=== PATIENT | female | born 1960 | race African-American/Black ===

== ENCOUNTER 2016-06-02 22:15 | Inpatient (IN) | payer MEDICAID, MEDICARE ==
[~2016-06-02] VITALS: Ht 172.7 cm; Wt 73.9 kg
[~2016-06-02 22:15] MED LIST: AMLO5TAB88 PO; ASPI325T2 PO; ATOR10TA PO; DICYCLOMINE PO; DOCU-138 PO; DULO60CA44 PO; FLONASE BOTHNSTRLS; GABA-531 PO; GABA800T97 PO; INSULIN PUMP; METH-612 PO; METO50TA5 PO; NORT50CA PO; OMEG100017 PO; PANT40TA4 PO; PROBIOTICS PO; TAPE75TA2 PO; TRAZADONE HCL PO; [UNRECOGNIZED DRUG - CODE] PO; [UNRECOGNIZED DRUG - CODE] TOP; [UNRECOGNIZED DRUG - CODE] TOP; [UNRECOGNIZED DRUG - CODE] TOP
[2016-06-02] MEDS ORDERED: ONDANSETRON HCL 4MG/2ML VIAL IV STA (22:49)
[2016-06-02] MEDS ORDERED: ASPIRIN 81MG TABLET PO STA (22:49)
[2016-06-02] MEDS ORDERED: MORPHINE SULFATE 4 MG/ML CPJ (NOT FOR IM USE) IV STA (22:49)
[2016-06-02] MEDS ORDERED: NITROGLYCERIN 0.4MG TABLET SL SL PRN (23:00)
[2016-06-02 23:16] LABS: PARTIAL THROMBOPLASTIN TIME 20.2 sec (24.0-34.0)
[2016-06-02 23:20] LABS: ALANINE AMINOTRANSFERASE 21 IU/L (13-61); ALBUMIN 3.2 g/dL (3.4-5.0); ANION GAP 11; CALCIUM 8.4 mg/dL (8.5-10.1); CARBON DIOXIDE 28 mEq/L (21-32); CHLORIDE 107 mEq/L (98-107); INDEX HEMOLYSI 2 (1-3); INDEX ICTERIC 1 (1-4); INDEX LIPEMIC 1 (1-3); LIPASE 36 IU/L (73-393); UREA NITROGEN BLOOD 18 mg/dL (7-21); eGFR > 60 mL/min (>60)
[2016-06-02 23:22] LABS: TROPONIN I < 0.02 ng/mL (0.00-0.04)
[2016-06-02 23:48] LABS: BASOPHILS % 1.1 % (0.0-2.0); EOSINOPHILS % 4.5 % (0.0-5.0); HEMATOCRIT. 30.8 % (36.0-48.0); HEMOGLOBIN. 10.3 g/dL (12.0-16.0); LYMPHOCYTES % 43.1 % (20.0-50.0); MEAN CORPUSCULAR HEMOGLOBIN 29.3 pg (28.0-32.0); MEAN CORPUSCULAR HGB CONC 33.4 g/dL (31.0-37.0); MEAN CORPUSCULAR VOLUME 87.8 fL (81.0-99.0); MEAN PLATELET VOLUME 8.5 fl (7.4-10.4); MONOCYTES % 9.3 % (2.0-8.0); PLATELET 215 x1000/uL (130-400); RED BLOOD CELL COUNT 3.51 mill/uL (4.2-5.4); RED CELL DISTRIBUTION WIDTH 15.7 % (11.6-14.6)
[2016-06-03 04:59] VITALS: BP 110/62
[2016-06-03] MEDS ORDERED: ONDANSETRON HCL 4MG/2ML VIAL IV PRN (05:30)
[2016-06-03] MEDS ORDERED: DOCUSATE SODIUM 100MG CAPSULE PO PRN (05:30)
[2016-06-03] MEDS ORDERED: ACETAMINOPHEN 325MG TABLET PO PRN (05:30)
[2016-06-03] MEDS ORDERED: HYDROCODONE/ACETAMINOPHEN 5/325MG TABLET PO PRN (05:30)
[2016-06-03] MEDS ORDERED: IBUP-1509 PO (06:00)
[2016-06-03] MEDS ORDERED: ROSTASIS EACHEYE (06:00)
[2016-06-03] MEDS ORDERED: CYAN10009 PO (06:00)
[2016-06-03] MEDS ORDERED: TAPE75TA2 PO (06:00)
[2016-06-03] MEDS ORDERED: LORA0.5T2 PO (06:00)
[2016-06-03] MEDS ORDERED: DICL100G5 TP (06:00)
[2016-06-03] MEDS ORDERED: MELO-58 PO (06:00)
[2016-06-03] MEDS ORDERED: RANI300T4 PO (06:00)
[2016-06-03 07:55] LABS: CREATINE KINASE 42 IU/L (26-192); INDEX HEMOLYSI 1 (1-3); TROPONIN I < 0.02 ng/mL (0.00-0.04)
[2016-06-03 08:00] VITALS: BP 133/83
[2016-06-03] MEDS: ASPIRIN 81MG EC TABLET PO SCH (08:35)
[2016-06-03] MEDS: METOPROLOL TARTRATE 25MG TABLET PO SCH ×2 (08:38→16:48)
[2016-06-03] MEDS: HYDROMORPHONE HCL/PF 2MG/ML CPJ IV PRN ×3 (08:39→23:20)
[2016-06-03 12:00] VITALS: BP 142/89
[2016-06-03] MEDS ORDERED: LORAZEPAM 0.5MG TABLET PO SCH (14:00)
[2016-06-03] MEDS ORDERED: FENTANYL 50 MCG TOP SCH (14:00)
[2016-06-03 16:00] VITALS: BP 151/90
[2016-06-03] MEDS: FAMOTIDINE 20MG TABLET PO SCH ×2 (16:13→16:48)
[2016-06-03] MEDS: METHOCARBAMOL 750MG TABLET PO SCH ×2 (16:14→20:29)
[2016-06-03] MEDS: FISH OIL/OMEGA-3 FATTY ACIDS 1000MG CAPSULE PO SCH (16:14)
[2016-06-03] MEDS: GABAPENTIN 300MG CAPSULE PO SCH (16:14)
[2016-06-03 16:30] LABS: CREATINE KINASE 48 IU/L (26-192); INDEX HEMOLYSI 1 (1-3); TROPONIN I < 0.02 ng/mL (0.00-0.04)
[2016-06-03] MEDS: NORTRIPTYLINE HCL 25MG CAPSULE PO SCH (16:48)
[2016-06-03] MEDS ORDERED: FENTANYL 75MCG/HR PATCH TOP SCH (18:00)
[2016-06-03 20:00] VITALS: BP 151/94
[2016-06-03] MEDS: CLONIDINE 0.1MG TABLET PO PRN (20:30)
[2016-06-03] MEDS ORDERED: ATORVASTATIN CALCIUM 10MG TABLET PO SCH (21:00)
[2016-06-03] MEDS ORDERED: PNEUMOCOCCAL 23-VAL P-SAC VAC 0.5 ML IM ONE (21:00)
[2016-06-04] VITALS: BP 157/96
[2016-06-04 04:00] VITALS: BP 95/62
[2016-06-04 06:21] LABS: BASOPHILS % 0.6 % (0.0-2.0); EOSINOPHILS % 3.6 % (0.0-5.0); HEMATOCRIT. 33.4 % (36.0-48.0); HEMOGLOBIN. 11.3 g/dL (12.0-16.0); LYMPHOCYTES % 28.3 % (20.0-50.0); MEAN CORPUSCULAR HEMOGLOBIN 29.6 pg (28.0-32.0); MEAN CORPUSCULAR VOLUME 87.1 fL (81.0-99.0); MEAN PLATELET VOLUME 8.5 fl (7.4-10.4); MONOCYTES % 9.2 % (2.0-8.0); NEUTROPHILS % 58.3 % (40.0-76.0); PLATELET 250 x1000/uL (130-400); RED BLOOD CELL COUNT 3.83 mill/uL (4.2-5.4); RED CELL DISTRIBUTION WIDTH 15.5 % (11.6-14.6); WHITE BLOOD COUNT 9.2 x1000/uL (4.5-11.0)
[2016-06-04] MEDS ORDERED: IBUPROFEN 600MG TABLET PO SCH (07:15)
[2016-06-04 07:35] LABS: ALANINE AMINOTRANSFERASE 21 IU/L (13-61); ALBUMIN 3.2 g/dL (3.4-5.0); ANION GAP 11; CALCIUM 8.9 mg/dL (8.5-10.1); CARBON DIOXIDE 30 mEq/L (21-32); CHLORIDE 103 mEq/L (98-107); HDL CHOLESTEROL 75 mg/dL (40-59); INDEX HEMOLYSI 1 (1-3); INDEX ICTERIC 1 (1-4); INDEX LIPEMIC 1 (1-3); LDL CHOLESTEROL 95 mg/dL (5-100); TRIGLYCERIDE 73 mg/dL (0-150); UREA NITROGEN BLOOD 11 mg/dL (7-21); eGFR > 60 mL/min (>60)
[2016-06-04 08:00] VITALS: BP 110/64
[2016-06-04] MEDS: ASPIRIN 81MG EC TABLET PO SCH (08:34)
[2016-06-04] MEDS: FISH OIL/OMEGA-3 FATTY ACIDS 1000MG CAPSULE PO SCH ×2 (08:35→15:56)
[2016-06-04] MEDS: METHOCARBAMOL 750MG TABLET PO SCH ×2 (08:36→15:55)
[2016-06-04] MEDS: NORTRIPTYLINE HCL 25MG CAPSULE PO SCH (08:36)
[2016-06-04] MEDS: GABAPENTIN 300MG CAPSULE PO SCH ×3 (08:37→15:57)
[2016-06-04] MEDS ORDERED: TAPENTADOL HYDROCHLORIDE PO SCH (09:00)
[2016-06-04] MEDS ORDERED: CYANOCOBALAMIN 1000MCG TABLET PO SCH (09:00)
[2016-06-04] MEDS ORDERED: AMLODIPINE 5MG TABLET PO SCH (09:00)
[2016-06-04] MEDS ORDERED: DICLOFENAC SODIUM 1 GM TP SCH (09:00)
[2016-06-04] MEDS ORDERED: DOCUSATE SODIUM 100MG CAPSULE PO SCH (09:00)
[2016-06-04] MEDS ORDERED: [UNRECOGNIZED DRUG - OTHER] EACHEYE SCH (09:00)
[2016-06-04] MEDS ORDERED: MELOXICAM 7.5MG TABLET PO SCH (09:00)
[2016-06-04] MEDS: METOPROLOL TARTRATE 25MG TABLET PO SCH ×2 (09:00→17:00)
[2016-06-04 12:00] VITALS: BP 148/92
[2016-06-04] MEDS: CLONIDINE 0.1MG TABLET PO PRN (13:04)
[2016-06-04] MEDS ORDERED: LORAZEPAM 0.5MG TABLET PO PRN (14:00)
[2016-06-04] MEDS: FAMOTIDINE 20MG TABLET PO SCH (15:56)
[2016-06-04 16:00] VITALS: BP 132/91
[2016-06-04 16:13] VITALS: BP 132/90
[2016-06-04] MEDS ORDERED: NORTRIPTYLINE HCL 25MG CAPSULE PO SCH (21:00)
== END 2016-06-04 17:30 | disposition home or self-care (01) | DRG 206 ==
LOC: ER 22:15 → 5WST 06-03 00:32
PROVIDERS: ADMIT Hospitalist; ATTEND Hospitalist
PROC: 02HV33Z Insertion of Infusion Device into Superior Vena Cava, Percutaneous Approach (ICD-10-PCS; principal; 2016-06-04)
PROC: B5181ZA Fluoroscopy of Superior Vena Cava using Low Osmolar Contrast, Guidance (ICD-10-PCS; 2016-06-04)
PROC: B548ZZA Ultrasonography of Superior Vena Cava, Guidance (ICD-10-PCS; 2016-06-04)
DX: M94.0 Chondrocostal junction syndrome [Tietze] (principal); E10.9 Type 1 diabetes mellitus without complications; I10 Essential (primary) hypertension; E78.5 Hyperlipidemia, unspecified; I25.10 Atherosclerotic heart disease of native coronary artery without angina pectoris; D64.9 Anemia, unspecified; Z82.49 Family history of ischemic heart disease and other diseases of the circulatory system; Z83.3 Family history of diabetes mellitus; Z88.6 Allergy status to analgesic agent; Z88.5 Allergy status to narcotic agent; Z79.82 Long term (current) use of aspirin; Z79.899 Other long term (current) drug therapy
CPT/HCPCS: 36415; 36569; 71010; 76937; 77001; 80053; 80061; 82550; 82962; 83690; 84484; 85025; 85610; 85730; 90732; 93005; 93970; 96374; 96375; 99285; C1725; C1893; J1170; J2270; J2405

== ENCOUNTER 2016-06-21 17:39 | Emergency (ER) | payer MEDICARE ==
[~2016-06-21] VITALS: Ht 170.2 cm; Wt 75.0 kg
[~2016-06-21 17:39] MED LIST changes: +CYAN10009 PO; +DICL100G5 TP; -DULO60CA44 PO; +IBUP-1509 PO; +LORA0.5T2 PO; +MELO-58 PO; +RANI300T4 PO; +ROSTASIS EACHEYE
[2016-06-21] MEDS ORDERED: IBUPROFEN 400MG TABLET PO ONE (18:15)
[2016-06-21 18:27] LABS: BASOPHILS % 0.5 % (0.0-2.0); EOSINOPHILS % 2.9 % (0.0-5.0); HEMATOCRIT. 34.5 % (36.0-48.0); HEMOGLOBIN. 11.5 g/dL (12.0-16.0); MEAN CORPUSCULAR HEMOGLOBIN 28.8 pg (28.0-32.0); MEAN CORPUSCULAR HGB CONC 33.3 g/dL (31.0-37.0); MEAN CORPUSCULAR VOLUME 86.6 fL (81.0-99.0); MEAN PLATELET VOLUME 8.2 fl (7.4-10.4); MONOCYTES % 7.3 % (2.0-8.0); NEUTROPHILS % 65.3 % (40.0-76.0); PLATELET 247 x1000/uL (130-400); RED BLOOD CELL COUNT 3.99 mill/uL (4.2-5.4); RED CELL DISTRIBUTION WIDTH 15.4 % (11.6-14.6); WHITE BLOOD COUNT 7.7 x1000/uL (4.5-11.0)
[2016-06-21 18:41] LABS: ALANINE AMINOTRANSFERASE 23 IU/L (13-61); ALBUMIN 3.4 g/dL (3.4-5.0); ANION GAP 10; CALCIUM 8.4 mg/dL (8.5-10.1); CARBON DIOXIDE 30 mEq/L (21-32); CHLORIDE 104 mEq/L (98-107); INDEX HEMOLYSI 1 (1-3); INDEX ICTERIC 1 (1-4); INDEX LIPEMIC 1 (1-3); LIPASE 43 IU/L (73-393); TROPONIN I < 0.02 ng/mL (0.00-0.04); UREA NITROGEN BLOOD 18 mg/dL (7-21); eGFR > 60 mL/min (>60)
[2016-06-21] MEDS ORDERED: TRAMADOL 50MG TABLET PO ONE (20:15)
[2016-06-21 20:21] VITALS: BP 123/79
== END 2016-06-21 20:36 | disposition home or self-care (01) ==
LOC: ER 17:40
DX: R07.89 Other chest pain (principal); I10 Essential (primary) hypertension; E11.9 Type 2 diabetes mellitus without complications
CPT/HCPCS: 36415; 71010; 80053; 83690; 84484; 85025; 93005; 99285; C1893

== ENCOUNTER 2016-10-18 08:01 | Inpatient (IN) | payer MEDICARE ==
[~2016-10-18] VITALS: Ht 172.7 cm; Wt 78.5 kg
[~2016-10-18 08:01] MED LIST changes: +ASPI-986 PO; -ASPI325T2 PO; +DICL100G16 TP; -DICL100G5 TP; -IBUP-1509 PO; +IBUP-2028 PO; +MELO-106 PO; -MELO-58 PO
[2016-10-18] MEDS ORDERED: SODIUM CHLORIDE 0.9% 1,000 ML IV ONE (08:26)
[2016-10-18] MEDS ORDERED: ASPIRIN 81MG TABLET PO ONE (08:30)
[2016-10-18] MEDS ORDERED: NITROGLYCERIN OINT 1GM/INCH UDPKT TD ONE (08:30)
[2016-10-18 08:51] LABS: HEMATOCRIT. 38.4 % (36.0-48.0); HEMOGLOBIN. 12.7 g/dL (12.0-16.0); MEAN CORPUSCULAR HEMOGLOBIN 28.7 pg (28.0-32.0); MEAN CORPUSCULAR VOLUME 86.9 fL (81.0-99.0); MEAN PLATELET VOLUME 8.8 fl (7.4-10.4); RED BLOOD CELL COUNT 4.42 mill/uL (4.2-5.4)
[2016-10-18 08:57] LABS: INR 0.9; PARTIAL THROMBOPLASTIN TIME 25.8 sec (23.4-31.0); PROTHROMBIN TIME 9.9 sec (9.4-11.6)
[2016-10-18 09:05] LABS: CARBON DIOXIDE 33 mEq/L (21-32); CHLORIDE 103 mEq/L (98-107); TROPONIN I < 0.02 ng/mL (0.00-0.04)
[2016-10-18 10:25] LABS: NUCLEATED RED BLOOD CELLS 2 /100 WBC
[2016-10-18 10:26] LABS: PLATELET 196 x1000/uL (130-400)
[2016-10-18] MEDS ORDERED: KETOROLAC 30MG/ML VIAL IV ONE (11:15)
[2016-10-18 11:55] LABS: CLARITY URINE CLOUDY (CLEAR); COLOR URINE YELLOW (YELLOW); GLUCOSE URINE NEGATIVE (NEGATIVE); KETONES URINE NEGATIVE (NEGATIVE); LEUKOCYTE ESTERASE URINE NEGATIVE (NEGATIVE); NITRITE URINE NEGATIVE (NEGATIVE); OCCULT BLOOD URINE NEGATIVE (NEGATIVE); PROTEIN URINE NEGATIVE (NEGATIVE); SPECIFIC GRAVITY URINE 1.022 (1.005-1.030)
[2016-10-18] MEDS ORDERED: DOCUSATE SODIUM 100MG CAPSULE PO PRN (13:45)
[2016-10-18] MEDS ORDERED: CLONIDINE 0.1MG TABLET PO PRN (13:45)
[2016-10-18] MEDS ORDERED: DEXTROSE 50% WATER 50ML SYRINGE IV PRN (13:45)
[2016-10-18] MEDS ORDERED: DIPHENHYDRAMINE 50MG/ML VIAL IV PRN (13:45)
[2016-10-18] MEDS ORDERED: TRAMADOL 50MG TABLET PO PRN (13:45)
[2016-10-18] MEDS ORDERED: NITROGLYCERIN 0.4MG TABLET SL SL PRN (13:45)
[2016-10-18] MEDS ORDERED: MAGNESIUM/ALUMINUM HYDROXIDE/SIMETHICONE 30ML UDC PO PRN (13:45)
[2016-10-18] MEDS ORDERED: ACETAMINOPHEN 325MG TABLET PO PRN (13:45)
[2016-10-18] MEDS ORDERED: IPRATROPIUM/ALBUTEROL 0.5-3(2.5)MG/3ML NEB INH PRN (13:45)
[2016-10-18] MEDS ORDERED: KETOROLAC 15MG/ML VIAL IV PRN (13:45)
[2016-10-18] MEDS ORDERED: NA PHOS,M-B/NA PHOS,DI-BA ENEMA 118ML PR PRN (13:45)
[2016-10-18] MEDS ORDERED: LORAZEPAM 2MG/ML CPJ IV PRN (13:45)
[2016-10-18] MEDS ORDERED: GUAIFENESIN 200MG/10ML SUGAR FREE UDC PO PRN (13:45)
[2016-10-18 15:15] VITALS: BP 126/76
[2016-10-18 15:30] VITALS: BP 126/76
[2016-10-18] MEDS: MORPHINE SULFATE 4 MG/ML CPJ (NOT FOR IM USE) IV PRN ×2 (16:15→22:05)
[2016-10-18] MEDS ORDERED: CA C1TAB98 PO (16:25)
[2016-10-18] MEDS: INSULIN LISPRO 100 UNITS/ML SUBCUT SCH (17:40)
[2016-10-18] MEDS ORDERED: SOLI5TAB PO (17:54)
[2016-10-18] MEDS: BLOOD SUGAR DIAGNOSTIC STRIP TEST SCH ×2 (17:58→20:36)
[2016-10-18] MEDS: SUCRALFATE 1 G/10 ML UDC PO SCH ×2 (18:03→20:24)
[2016-10-18] MEDS: ENOXAPARIN 40MG/0.4ML SYR SUBCUT SCH (18:04)
[2016-10-18 20:00] VITALS: BP 146/86
[2016-10-18] MEDS: METOPROLOL TARTRATE 50MG TABLET PO SCH (20:26)
[2016-10-18] MEDS: FAMOTIDINE 20MG/2ML VIAL IV SCH (20:26)
[2016-10-18] MEDS: ATORVASTATIN CALCIUM 10MG TABLET PO SCH (20:27)
[2016-10-18] MEDS ORDERED: ZOLPIDEM TARTRATE 5MG TABLET PO PRN (21:00)
[2016-10-18] MEDS: GABAPENTIN 300MG CAPSULE PO SCH (21:56)
[2016-10-18 23:50] LABS: CREATINE KINASE 61 IU/L (26-192); CREATINE KINASE MB FRACTION < 0.5 ng/mL (0.5-3.6); HDL CHOLESTEROL 61 mg/dL (40-59); LDL CHOLESTEROL 130 mg/dL (5-100); TROPONIN I < 0.02 ng/mL (0.00-0.04)
[2016-10-19] VITALS: BP 140/74
[2016-10-19] MEDS: INSULIN LISPRO 100 UNITS/ML SUBCUT SCH ×5 (00:21→20:34)
[2016-10-19 04:00] VITALS: BP 132/84
[2016-10-19] MEDS: GABAPENTIN 300MG CAPSULE PO SCH (05:49)
[2016-10-19] MEDS: SUCRALFATE 1 G/10 ML UDC PO SCH ×4 (06:17→20:25)
[2016-10-19] MEDS: BLOOD SUGAR DIAGNOSTIC STRIP TEST SCH ×4 (06:30→20:23)
[2016-10-19 07:06] LABS: BASOPHILS % 1.2 % (0.0-2.0); EOSINOPHILS % 3.6 % (0.0-5.0); HEMATOCRIT. 35.2 % (36.0-48.0); HEMOGLOBIN. 11.7 g/dL (12.0-16.0); LYMPHOCYTES % 28.8 % (20.0-50.0); MEAN CORPUSCULAR HEMOGLOBIN 28.7 pg (28.0-32.0); MEAN CORPUSCULAR VOLUME 86.3 fL (81.0-99.0); MEAN PLATELET VOLUME 9.3 fl (7.4-10.4); MONOCYTES % 7.8 % (2.0-8.0); NEUTROPHILS % 58.6 % (40.0-76.0); PLATELET 267 x1000/uL (130-400); RED BLOOD CELL COUNT 4.08 mill/uL (4.2-5.4); RED CELL DISTRIBUTION WIDTH 15.9 % (11.6-14.6)
[2016-10-19 07:46] VITALS: BP 136/86
[2016-10-19] MEDS: METOPROLOL TARTRATE 50MG TABLET PO SCH ×2 (09:31→20:25)
[2016-10-19] MEDS: ASPIRIN 325MG EC TABLET PO SCH (09:31)
[2016-10-19] MEDS: AMLODIPINE 5MG TABLET PO SCH (09:32)
[2016-10-19] MEDS: FAMOTIDINE 20MG/2ML VIAL IV SCH ×2 (09:32→20:25)
[2016-10-19 11:17] LABS: *AMPHETAMINES SCREEN URINE NEGATIVE (NEGATIVE); *BARBITURATES SCREEN URINE NEGATIVE (NEGATIVE); *BENZODIAZEPINES SCREEN URINE NEGATIVE (NEGATIVE); *COCAINE SCREEN URINE NEGATIVE (NEGATIVE); CANNABINOID URINE SCREEN NEGATIVE (NEGATIVE); METHADONE URINE SCREEN NEGATIVE (NEGATIVE); OPIATES URINE SCREEN NEGATIVE (NEGATIVE); PHENCYCLIDINE URINE SCREEN NEGATIVE (NEGATIVE)
[2016-10-19] MEDS ORDERED: DEXTROSE 50% WATER 50ML SYRINGE IV PRN (11:45)
[2016-10-19 12:13] VITALS: BP 153/82
[2016-10-19] MEDS: ONDANSETRON HCL 4MG/2ML VIAL IV PRN ×2 (13:39→22:14)
[2016-10-19] MEDS: GABAPENTIN 400MG CAPSULE PO SCH ×2 (13:40→21:42)
[2016-10-19] MEDS: INSULIN DETEMIR UD 100 UNITS/ML SYR SUBCUT SCH (13:41)
[2016-10-19] MEDS ORDERED: IOHEXOL-300 100 ML BOTTLE ONE (14:11)
[2016-10-19] MEDS ORDERED: SODIUM CHLORIDE 0.9% 10ML VIAL ONE (14:11)
[2016-10-19 16:00] VITALS: BP_SYST 115; BP_SYST 121; BP_SYST 134; BP_DIAS 64; BP_DIAS 72; BP_DIAS 85
[2016-10-19] MEDS: MORPHINE SULFATE 4 MG/ML CPJ (NOT FOR IM USE) IV PRN (16:36)
[2016-10-19] MEDS: ENOXAPARIN 40MG/0.4ML SYR SUBCUT SCH (16:36)
[2016-10-19 20:00] VITALS: BP_SYST 104; BP_SYST 127; BP_SYST 135; BP_DIAS 69; BP_DIAS 80; BP_DIAS 86
[2016-10-19] MEDS: ATORVASTATIN CALCIUM 10MG TABLET PO SCH (20:35)
[2016-10-20] VITALS: BP 131/79
[2016-10-20 04:00] VITALS: BP 146/85
[2016-10-20] MEDS: MORPHINE SULFATE 4 MG/ML CPJ (NOT FOR IM USE) IV PRN (05:12)
[2016-10-20] MEDS: SUCRALFATE 1 G/10 ML UDC PO SCH ×2 (06:17→12:13)
[2016-10-20] MEDS: GABAPENTIN 400MG CAPSULE PO SCH (06:17)
[2016-10-20] MEDS: BLOOD SUGAR DIAGNOSTIC STRIP TEST SCH ×2 (06:17→12:06)
[2016-10-20] MEDS: INSULIN LISPRO 100 UNITS/ML SUBCUT SCH ×2 (06:45→12:11)
[2016-10-20 07:54] LABS: BASOPHILS % 0.6 % (0.0-2.0); EOSINOPHILS % 3.3 % (0.0-5.0); HEMATOCRIT. 34.2 % (36.0-48.0); HEMOGLOBIN. 11.6 g/dL (12.0-16.0); LYMPHOCYTES % 33.3 % (20.0-50.0); MEAN CORPUSCULAR HEMOGLOBIN 28.9 pg (28.0-32.0); MEAN CORPUSCULAR VOLUME 85.5 fL (81.0-99.0); MEAN PLATELET VOLUME 8.9 fl (7.4-10.4); MONOCYTES % 7.4 % (2.0-8.0); NEUTROPHILS % 55.4 % (40.0-76.0); PLATELET 296 x1000/uL (130-400); RED CELL DISTRIBUTION WIDTH 15.8 % (11.6-14.6)
[2016-10-20 08:44] LABS: CARBON DIOXIDE 30 mEq/L (21-32); CHLORIDE 99 mEq/L (98-107)
[2016-10-20] MEDS: METOPROLOL TARTRATE 50MG TABLET PO SCH (08:50)
[2016-10-20] MEDS: ASPIRIN 325MG EC TABLET PO SCH (08:50)
[2016-10-20] MEDS: AMLODIPINE 5MG TABLET PO SCH (08:51)
[2016-10-20] MEDS: FAMOTIDINE 20MG/2ML VIAL IV SCH (08:51)
[2016-10-20] MEDS: INSULIN DETEMIR UD 100 UNITS/ML SYR SUBCUT SCH (09:41)
[2016-10-20 12:00] VITALS: BP 135/79
== END 2016-10-20 14:15 | disposition home or self-care (01) | DRG 392 ==
LOC: ER 08:22 → 8WST 13:19 → EDBEDREQ 13:21 → SUPCPDRO 13:38 → ENRESERV 14:27
PROVIDERS: ADMIT Internal Medicine; ATTEND Internal Medicine
DX: K21.9 Gastro-esophageal reflux disease without esophagitis (principal); E11.42 Type 2 diabetes mellitus with diabetic polyneuropathy; I25.10 Atherosclerotic heart disease of native coronary artery without angina pectoris; E11.65 Type 2 diabetes mellitus with hyperglycemia; E78.00 Pure hypercholesterolemia, unspecified; E78.5 Hyperlipidemia, unspecified; I10 Essential (primary) hypertension; Z79.4 Long term (current) use of insulin; Z79.82 Long term (current) use of aspirin; Z82.49 Family history of ischemic heart disease and other diseases of the circulatory system; Z83.3 Family history of diabetes mellitus; Z88.6 Allergy status to analgesic agent; Z79.899 Other long term (current) drug therapy; Z98.891 History of uterine scar from previous surgery; Z88.8 Allergy status to other drugs, medicaments and biological substances; Z90.710 Acquired absence of both cervix and uterus
CPT/HCPCS: 36415; 70450; 70544; 70553; 71010; 74177; 80048; 80053; 80061; 80305; 81001; 82550; 82553; 82962; 83036; 83690; 83735; 83880; 84484; 85025; 85610; 85730; 93005; 93306; 93880; 93970; 96361; 96374; 99285; A4216; J1200; J1650; J1815; J1885; J2270; J2405; J3490; J7030; Q9967

== ENCOUNTER 2017-02-04 21:35 | Emergency (ER) | payer MEDICARE ==
[~2017-02-04] VITALS: Ht 172.7 cm; Wt 80.0 kg
[~2017-02-04 21:35] MED LIST changes: +CA C1TAB98 PO; -GABA-531 PO; -LORA0.5T2 PO; -MELO-106 PO; +METO-539 PO; -METO50TA5 PO; +SOLI5TAB PO; -TAPE75TA2 PO; -[UNRECOGNIZED DRUG - CODE] PO; -[UNRECOGNIZED DRUG - CODE] TOP
[2017-02-04] MEDS ORDERED: SODIUM CHLORIDE 0.9% 1,000 ML IV ONE (22:05)
[2017-02-04 22:53] LABS: CHLORIDE 101 mEq/L (98-107)
[2017-02-04 23:01] LABS: AMYLASE 63 IU/L (25-115); BETA HYDROXYBUTYRATE 1.9 mMol/L (0.0-0.3); CARBON DIOXIDE 16 mEq/L (21-32)
[2017-02-04 23:38] LABS: BG CARBOXYHEMOGLOBIN 0.2 % (0.5-1.5); BG DEOXYHEMOGLOBIN 3.7 % (0.0-5.0); BG FRACTION INSPIRED OXYGEN 21; BG HCO3 ACT 14.5 mmol/L (22.0-26.0); BG METHEMOGLOBIN 0.3 % (0.0-1.5); BG OXYGEN SATURATION 96.3 % (92.0-98.5); BG OXYHEMOGLOBIN 95.8 % (94.0-97.0); BG PCO2 25.1 mmHg (35.0-45.0); BG PH 7.381 (7.350-7.450); BG PO2 89.2 mmHg (75.0-100.0); BG SAMPLE SITE RIGHT RADIAL; BG TOTAL HEMOGLOBIN 11.1 g/dL (12.0-18.0); BG VENT MODE ROOM AIR
[2017-02-04 23:53] LABS: BASOPHILS % 0.3 % (0.0-2.0); EOSINOPHILS % 0.2 % (0.0-5.0); HEMATOCRIT. 32.7 % (36.0-48.0); HEMOGLOBIN. 10.6 g/dL (12.0-16.0); LYMPHOCYTES % 9.4 % (20.0-50.0); MEAN CORPUSCULAR HEMOGLOBIN 27.8 pg (28.0-32.0); MEAN CORPUSCULAR VOLUME 86.2 fL (81.0-99.0); MEAN PLATELET VOLUME 9.4 fl (7.4-10.4); MONOCYTES % 3.5 % (2.0-8.0); NEUTROPHILS % 86.6 % (40.0-76.0); PLATELET 256 x1000/uL (130-400); RED BLOOD CELL COUNT 3.79 mill/uL (4.2-5.4); RED CELL DISTRIBUTION WIDTH 16.7 % (11.6-14.6)
[2017-02-05] MEDS ORDERED: INSULIN REGULAR (HUMULIN R) 300UNITS/3ML SUBCUT ONE
[2017-02-05 00:56] LABS: CLARITY URINE CLEAR (CLEAR); COLOR URINE YELLOW (YELLOW); KETONES URINE 3+ (NEGATIVE); LEUKOCYTE ESTERASE URINE NEGATIVE (NEGATIVE); NITRITE URINE NEGATIVE (NEGATIVE); OCCULT BLOOD URINE NEGATIVE (NEGATIVE); PROTEIN URINE NEGATIVE (NEGATIVE); SPECIFIC GRAVITY URINE 1.035 (1.005-1.030); UROBILINOGEN URINE 0.2 E.U./dL (0.2-1.0)
[2017-02-05 00:59] LABS: CHLORIDE 104 mEq/L (98-107)
[2017-02-05 01:04] LABS: CARBON DIOXIDE 17 mEq/L (21-32)
[2017-02-05] MEDS ORDERED: INSULIN REGULAR (HUMULIN R) 300UNITS/3ML IV ONE ×2 (03:15)
[2017-02-05 04:59] VITALS: BP 135/68
== END 2017-02-05 05:01 | disposition home or self-care (01) ==
LOC: ER 21:57
DX: E11.10 Type 2 diabetes mellitus with ketoacidosis without coma (principal); I10 Essential (primary) hypertension; E78.00 Pure hypercholesterolemia, unspecified; Z79.82 Long term (current) use of aspirin
CPT/HCPCS: 36415; 36600; 80048; 80053; 81001; 82010; 82150; 82375; 82805; 82962; 83690; 85025; 93005; 96361; 96372; 96374; 96376; 99285; J1815; J7030

== ENCOUNTER 2018-05-28 00:44 | Emergency (ER) | payer OTHER ==
[~2018-05-28] VITALS: Ht 165.1 cm; Wt 73.0 kg
[~2018-05-28 00:44] MED LIST changes: -ASPI-986 PO; -CA C1TAB98 PO; -IBUP-2028 PO; -PANT40TA4 PO; -RANI300T4 PO
[2018-05-28] MEDS ORDERED: SODIUM CHLORIDE 0.9% 1,000 ML IV ONE ×2 (01:43→04:24)
[2018-05-28 02:47] LABS: HEMATOCRIT. 29.5 % (36.0-48.0); HEMOGLOBIN. 9.1 g/dL (12.0-16.0); MEAN CORPUSCULAR HEMOGLOBIN 26.7 pg (28.0-32.0); MEAN CORPUSCULAR VOLUME 86.8 fL (81.0-99.0); PLATELET 319 x1000/uL (130-400); RED CELL DISTRIBUTION WIDTH 18.7 % (11.6-14.6)
[2018-05-28 02:54] LABS: CHLORIDE 96 mEq/L (98-107)
[2018-05-28 03:04] LABS: BETA HYDROXYBUTYRATE 5.1 mMol/L (0.0-0.3)
[2018-05-28] MEDS ORDERED: ONDANSETRON HCL 4MG/2ML INJ IV NR (03:30)
[2018-05-28 04:24] LABS: PLATELET ESTIMATE NORMAL
[2018-05-28] MEDS ORDERED: INSULIN REGULAR (DRIP) 100 UNITS in SODIUM CHLORIDE 0.9% 99 ML IV SCH (04:30)
[2018-05-28 06:15] VITALS: BP 128/85
[2018-05-28 08:39] LABS: CLARITY URINE CLEAR (CLEAR); COLOR URINE YELLOW (YELLOW); KETONES URINE 2+ (NEGATIVE); LEUKOCYTE ESTERASE URINE NEGATIVE (NEGATIVE); NITRITE URINE NEGATIVE (NEGATIVE); OCCULT BLOOD URINE NEGATIVE (NEGATIVE); PH URINE 5.5 (4.5-8.0); PROTEIN URINE NEGATIVE (NEGATIVE); SPECIFIC GRAVITY URINE 1.012 (1.005-1.030); UROBILINOGEN URINE 0.2 E.U./dL (0.2-1.0)
== END 2018-05-28 06:36 | disposition short-term general hospital (02) ==
LOC: ER 00:44
DX: E11.10 Type 2 diabetes mellitus with ketoacidosis without coma (principal); E78.00 Pure hypercholesterolemia, unspecified; I10 Essential (primary) hypertension; Z79.4 Long term (current) use of insulin; Z88.5 Allergy status to narcotic agent; Z79.899 Other long term (current) drug therapy
CPT/HCPCS: 36415; 80053; 81003; 82010; 82962; 83690; 85025; 96365; 96375; 99291; J1815; J2405; J7030; J7050

== ENCOUNTER 2018-06-27 11:04 | Inpatient (IN) | payer OTHER ==
[~2018-06-27] VITALS: Ht 172.7 cm; Wt 68.0 kg
[2018-06-27] MEDS ORDERED: SODIUM CHLORIDE 0.9% 1000ML BAG (SEPSIS BOLUS) IV ONE (12:00)
[2018-06-27] MEDS ORDERED: CEFTRIAXONE 1 G PREMIX 50 ML IV ONE (12:00)
[2018-06-27 12:21] LABS: CHLORIDE 93 mEq/L (98-107)
[2018-06-27 12:22] LABS: BASOPHILS % 0.2 % (0.0-2.0); EOSINOPHILS % 0.5 % (0.0-5.0); HEMATOCRIT. 28.4 % (36.0-48.0); LYMPHOCYTES % 10.6 % (20.0-50.0); MEAN CORPUSCULAR VOLUME 85.6 fL (81.0-99.0); MEAN PLATELET VOLUME 8.3 fl (7.4-10.4); MONOCYTES % 5.1 % (2.0-8.0); NEUTROPHILS % 83.6 % (40.0-76.0); PLATELET 525 x1000/uL (130-400); RED BLOOD CELL COUNT 3.32 mill/uL (4.2-5.4); RED CELL DISTRIBUTION WIDTH 20.5 % (11.6-14.6)
[2018-06-27 12:24] LABS: CLARITY URINE CLEAR (CLEAR); COLOR URINE YELLOW (YELLOW); KETONES URINE 4+ (NEGATIVE); LEUKOCYTE ESTERASE URINE NEGATIVE (NEGATIVE); NITRITE URINE NEGATIVE (NEGATIVE); OCCULT BLOOD URINE NEGATIVE (NEGATIVE); PROTEIN URINE NEGATIVE (NEGATIVE); SPECIFIC GRAVITY URINE 1.017 (1.005-1.030); UROBILINOGEN URINE 0.2 E.U./dL (0.2-1.0)
[2018-06-27] MEDS ORDERED: INSULIN REGULAR (DRIP) 100 UNITS in SODIUM CHLORIDE 0.9% 100 ML IV ONE ×2 (13:25→13:30)
[2018-06-27] MEDS ORDERED: INSULIN REGULAR (HUMULIN R) UD 100 UNITS/ML SYR IV ONE (13:30)
[2018-06-27 13:38] LABS: BG BASE EXCESS -10.1 mmol/L (-2.0-2.0); BG CARBOXYHEMOGLOBIN 0.2 % (0.5-1.5); BG DEOXYHEMOGLOBIN 2.7 % (0.0-5.0); BG FRACTION INSPIRED OXYGEN 21; BG HCO3 ACT 14.5 mmol/L (22.0-26.0); BG METHEMOGLOBIN 0.1 % (0.0-1.5); BG OXYGEN SATURATION 97.3 % (92.0-98.5); BG PCO2 27.7 mmHg (35.0-45.0); BG PH 7.337 (7.350-7.450); BG PO2 105.8 mmHg (75.0-100.0); BG SAMPLE SITE RIGHT BRACHIAL; BG TOTAL HEMOGLOBIN 9.6 g/dL (12.0-18.0); BG VENT MODE ROOM AIR
[2018-06-27 13:47] LABS: PHOSPHORUS 4.6 mg/dL (2.5-4.9)
[2018-06-27] MEDS ORDERED: INSULIN REGULAR (DRIP) 100 UNITS in SODIUM CHLORIDE 0.9% 99 ML IV ONE (14:00)
[2018-06-27] MEDS ORDERED: INSULIN REGULAR (HUMULIN R) 300UNITS/3ML IV NR (14:00)
[2018-06-27] MEDS ORDERED: MAGNESIUM 1 G PREMIX 100 ML IV SCH (17:30)
[2018-06-27] MEDS ORDERED: MAGNESIUM/ALUMINUM HYDROXIDE/SIMETHICONE 30ML UDC PO PRN (17:30)
[2018-06-27] MEDS ORDERED: CLONIDINE 0.1MG TABLET PO PRN (17:30)
[2018-06-27] MEDS ORDERED: DOCUSATE SODIUM 100MG CAPSULE PO PRN (17:30)
[2018-06-27] MEDS ORDERED: DEXTROSE 50% WATER 50ML SYRINGE IV PRN ×3 (17:30)
[2018-06-27] MEDS ORDERED: ACETAMINOPHEN 325MG TABLET PO PRN (17:30)
[2018-06-27] MEDS ORDERED: ONDANSETRON HCL 4MG/2ML INJ IV PRN (17:30)
[2018-06-27] MEDS: BLOOD SUGAR DIAGNOSTIC STRIP TEST SCH ×3 (17:35→23:58)
[2018-06-27] MEDS ORDERED: TRAMADOL 50MG TABLET PO PRN (22:30)
[2018-06-27] MEDS ORDERED: ZOLPIDEM TARTRATE 5MG TABLET PO PRN (23:00)
[2018-06-27] MEDS: FAMOTIDINE 20MG TABLET PO SCH (23:45)
[2018-06-28] VITALS (23 sets, daily range): BP systolic 125–176; BP diastolic 31–97
[2018-06-28] MEDS ORDERED: ONDANSETRON HCL 4MG/2ML INJ IV PRN (00:30)
[2018-06-28] MEDS: BLOOD SUGAR DIAGNOSTIC STRIP TEST SCH ×11 (00:39→20:44)
[2018-06-28] MEDS: HYDROMORPHONE HCL/PF 2MG/ML CPJ IV PRN ×2 (00:41→05:01)
[2018-06-28] MEDS ORDERED: INSULIN REGULAR (DRIP) 100 UNITS in SODIUM CHLORIDE 0.9% 100 ML IV SCH (01:00)
[2018-06-28] MEDS: METHOCARBAMOL 750MG TABLET PO SCH ×3 (06:00→21:11)
[2018-06-28 06:06] LABS: BASOPHILS % 1.1 % (0.0-2.0); CHLORIDE 103 mEq/L (98-107); HEMATOCRIT. 21.5 % (36.0-48.0); HEMOGLOBIN. 7.2 g/dL (12.0-16.0); LYMPHOCYTES % 15.9 % (20.0-50.0); MEAN CORPUSCULAR HEMOGLOBIN 27.9 pg (28.0-32.0); MEAN CORPUSCULAR VOLUME 82.8 fL (81.0-99.0); MEAN PLATELET VOLUME 7.7 fl (7.4-10.4); MONOCYTES % 6.6 % (2.0-8.0); NEUTROPHILS % 75.4 % (40.0-76.0); PLATELET 534 x1000/uL (130-400); RED CELL DISTRIBUTION WIDTH 19.9 % (11.6-14.6)
[2018-06-28] MEDS ORDERED: DEXT 5%/0.9% NACL 1,000 ML IV SCH (07:00)
[2018-06-28] MEDS ORDERED: LIDOCAINE HCL 1% 20ML VIAL (Pyxis) INJ ONE (08:01)
[2018-06-28] MEDS ORDERED: NABUMETONE 500MG TABLET PO SCH ×2 (09:00→21:00)
[2018-06-28] MEDS ORDERED: DIPHENHYDRAMINE 25MG CAPSULE PO PRN (09:45)
[2018-06-28] MEDS ORDERED: CEFTRIAXONE 1 G PREMIX 50 ML IV SCH (11:00)
[2018-06-28] MEDS ORDERED: AMLODIPINE 10MG TABLET PO SCH (11:15)
[2018-06-28] MEDS ORDERED: LOSARTAN POTASSIUM 25 MG TABLET PO SCH (11:15)
[2018-06-28] MEDS ORDERED: DEXTROSE 50% WATER 50ML SYRINGE IV PRN (12:00)
[2018-06-28] MEDS: INSULIN LISPRO 100 UNITS/ML SUBCUT SCH ×3 (13:13→21:11)
[2018-06-28] MEDS ORDERED: INSULIN GLARGINE UD 100 UNITS/ML SYR SUBCUT SCH (14:00)
[2018-06-28 15:49] LABS: HEMATOCRIT 23.3 % (36.0-48.0); HEMOGLOBIN 7.7 g/dL (12.0-16.0); MEAN CORPUSCULAR HEMOGLOBIN 27.1 pg (28.0-32.0); MEAN CORPUSCULAR VOLUME 82.7 fL (81.0-99.0); PLATELET 524 x1000/uL (130-400); RED BLOOD CELL COUNT 2.82 mill/uL (4.2-5.4); RED CELL DISTRIBUTION WIDTH 19.8 % (11.6-14.6)
[2018-06-28] MEDS ORDERED: METOPROLOL TARTRATE 50MG TABLET PO SCH (21:00)
[2018-06-28] MEDS: FAMOTIDINE 20MG TABLET PO SCH (21:10)
[2018-06-29] VITALS: BP 161/81
[2018-06-29 01:18] VITALS: BP 163/93
[2018-06-29 01:33] VITALS: BP 161/92
[2018-06-29 02:02] VITALS: BP 157/91
[2018-06-29] MEDS ORDERED: INSULIN REGULAR (HUMULIN R) 300UNITS/3ML SUBCUT SCH (02:15)
[2018-06-29 02:18] VITALS: BP 157/91
[2018-06-29] MEDS: HYDROMORPHONE HCL/PF 2MG/ML CPJ IV PRN (02:18)
== END 2018-06-29 02:50 | disposition short-term general hospital (02) | DRG 638 ==
LOC: ER 11:04 → MICUSO 14:26 → EDBEDREQ 14:28 → EDBEDREQTM 14:28 → EDBEDREQSVC 14:28 → ENRESERV 21:52
PROVIDERS: ADMIT Family Medicine Adult Medicine; ATTEND Family Medicine Adult Medicine
PROC: 02HV33Z Insertion of Infusion Device into Superior Vena Cava, Percutaneous Approach (ICD-10-PCS; principal; 2018-06-28)
PROC: B548ZZA Ultrasonography of Superior Vena Cava, Guidance (ICD-10-PCS; 2018-06-28)
DX: E10.10 Type 1 diabetes mellitus with ketoacidosis without coma (principal); E87.1 Hypo-osmolality and hyponatremia; I10 Essential (primary) hypertension; E83.42 Hypomagnesemia; D64.9 Anemia, unspecified; D49.59 Neoplasm of unspecified behavior of other genitourinary organ; Z96.41 Presence of insulin pump (external) (internal); E78.5 Hyperlipidemia, unspecified; D72.829 Elevated white blood cell count, unspecified; K80.20 Calculus of gallbladder without cholecystitis without obstruction; Z82.49 Family history of ischemic heart disease and other diseases of the circulatory system; Z83.3 Family history of diabetes mellitus; Z88.5 Allergy status to narcotic agent; Z88.6 Allergy status to analgesic agent; Z79.899 Other long term (current) drug therapy; Z87.440 Personal history of urinary (tract) infections
CPT/HCPCS: 36415; 36569; 36600; 71045; 74176; 76937; 80048; 82010; 82375; 82805; 82962; 83036; 83605; 83735; 84100; 84145; 84484; 85027; 93005; 93306; 93970; 96365; 96375; 99291; C1725; J0696; J1170; J1815; J2405; J3475; J3490; J7030; J7042; J7050; Q0163